=== PATIENT | female | born 1985 ===

== ENCOUNTER 2018-04-18 12:48 | Emergency (ER) | payer OTHER ==
[2018-04-18 13:00] VITALS: BMI 26.2
[2018-04-18 13:03] VITALS: O2SAT 98
--- NOTE | 2018-04-18 14:22 | RAD ---
Date of service: 04/18/2018 HISTORY: SOB COMPARISON: No prior. TECHNIQUE: Chest PA and lateral FINDINGS: LUNGS: No infiltrate. Rounded 8 mm nodule in the right upper lobe. Consider further evaluation with computed tomography. PLEURA: No significant pleural effusion identified. No pneumothorax apparent. CARDIOVASCULAR: Normal. OSSEOUS STRUCTURES: No significant abnormalities. VISUALIZED UPPER ABDOMEN: Normal. OTHER FINDINGS: None. IMPRESSION: 8 mm nodule right upper lobe. Recommend further evaluation with computed tomography. Otherwise unremarkable.
--- NOTE | 2018-04-18 14:31 | C.PDOC ---
History Of Present Illness 32-year-old female, presents to the emergency department with complaints of reproducible left chest wall pain, that is reproducible for the past three days. Patient denies any nausea/vomiting, shortness of breath or any other associated symptoms. No other complaints at this time. reproduvcible left chest wall pain no swellor redness x3 days cxr and motrin Time Seen by Provider: 04/18/18 13:48 Chief Complaint (Nursing): Chest Pain History Per: Patient History/Exam Limitations: no limitations Current Symptoms Are (Timing): Still Present Severity: Moderate Past Medical History Reviewed: Historical Data, Nursing Documentation, Vital Signs Vital Signs: Last Vital Signs Temp 98.5 F 04/18/18 13:00 Pulse 62 04/18/18 13:00 Resp 18 04/18/18 13:00 BP Pulse Ox 98 04/18/18 13:00 Family History: States: No Known Family Hx - Social History Hx Alcohol Use: No Hx Substance Use: No - Immunization History Hx Tetanus Toxoid Vaccination: No Hx Influenza Vaccination: No Hx Pneumococcal Vaccination: No Review Of Systems Constitutional: Negative for: Fever Cardiovascular: Positive for: Chest Pain Respiratory: Negative for: Shortness of Breath Neurological: Negative for: Weakness, Numbness Physical Exam - Physical Exam Appears: Non-toxic, No Acute Distress Skin: Normal Color, Warm, Dry, No Rash Head: Atraumatic, Normacephalic Eye(s): bilateral: Normal Inspection, PERRL, EOMI Nose: Normal Oral Mucosa: Moist Lips: Normal Appearing Neck: Normal ROM Chest: Symmetrical, Tenderness (chest wall, anterior) Cardiovascular: Rhythm Regular, No Murmur Respiratory: Normal Breath Sounds, No Accessory Muscle Use Back: Normal Inspection Extremity: Normal ROM, No Deformity Neurological/Psych: Oriented x3, Normal Speech ED Course And Treatment - Laboratory Results Urine POC: Negative ECG: Interpreted By Me ECG Rhythm: Sinus Rhythm, Sinus Bradycardia ECG Interpretation: Normal Rate From EC O2 Sat by Pulse Oximetry: 98 Pulse Ox Interpretation: Normal (RA) - Radiology CXR: Viewed By Me, Read By Radiologist (FINDINGS:) Progress Note: Treated with motrin 600 mg PO. On re-evaluation lungs clear in no distress. Patient advised to follow up at clinic for evaluation of lung nodule Reassessment Condition: Improved Disposition Counseled Patient/Family Regarding: Studies Performed, Diagnosis, Need For Followup - [facility] [Outside] Disposition: HOME/ ROUTINE Disposition Time: 15:00 Condition: STABLE Additional Instructions: Follow up at clinic for further evaluation of lung nodule Prescriptions: Naproxen [Naprosyn] 1 tab PO BID PRN #25 tab PRN Reason: Pain Instructions: Costochondritis Forms: [facility] (Slovak) Print Language: SETSWANA - POA Present On Arrival: None - Clinical Impression Clinical Impression: Chest wall pain - Scribe Statement The provider has reviewed the documentation as recorded by the Scribe (Mani Thompson) All medical record entries made by the Scribe were at my direction and personally dictated by me. I have reviewed the chart and agree that the record accurately reflects my personal performance of the history, physical exam, medical decision making, and the department course for this patient. I have also personally directed, reviewed, and agree with the discharge instructions and disposition.
[2018-04-18 15:57] VITALS: BP 108/70; PULSE 63; RESP 16; TEMP 98
--- NOTE | 2018-04-19 23:09 | CARD ---
APPROVED REPORT Date of service: 04/18/2018 EKG Measurement Heart [id number] NM [id number] <Conclusion> Sinus bradycardia Otherwise normal ECG
== END 2018-04-18 16:02 | disposition home or self-care (01) ==
LOC: C.ER 12:48
DX: R07.89 Other chest pain (principal)